=== PATIENT | male | born 1995 | race Caucasian/White ===

== ENCOUNTER 2016-10-26 08:43 | Emergency (ER) | payer OTHER ==
[~2016-10-26 08:43] MED LIST: LANTUS100 UNITS/ SC; NOVOLOG100 UNITS/ SC
[2016-10-26 09:26] LABS: BASO % 0.4 % (0-2); EOSINOPHIL ABSOLUTE COUNT 0.2 tho/cmm (0.0-0.7); HCT-HEMATOCRIT 40.2 % (36.0-53.5); HGB-HEMOGLOBIN 14.1 gm/dl (13.5-17.0); IMMATURE GRANULOCYTES ABSOLUTE 0.05 tho/cmm (0-0.03); IMMATURE GRANULOCYTES PERCENT 0.5 % (0-0.3); KETONE-BETA (WHOLE BLOOD) 0.4 mmol/L (0.0-0.6); LYMPH % 25.9 % (20-45); LYMPH ABSOLUTE COUNT 2.6 tho/cmm (0.8-4.5); MCH (MEAN CORPUSCULAR HGB) 30.7 pg (28.0-32.0); MCHC MEAN CORPUSCULAR HGB CONC 35.1 % (32.0-36.0); MCV (MEAN CELL VOLUME) 87.6 fl (82.0-96.0); MEAN PLATELET VOLUME 8.5 cmc (9.4-12.4); MONOCYTE ABSOLUTE COUNT 0.9 tho/cmm (0.0-1.2); NEUTROPHIL ABSOLUTE COUNT 6.2 tho/cmm (1.6-8.0); NEUTROPHIL-AUTOMATED 6.2 tho/cmm (1.6-8.0); NEUTROPHILS % 62.2 % (40-80); PLATELET COUNT 398 tho/cmm (150-450); RED BLOOD COUNT 4.59 mil/cmm (4.40-5.70)
[2016-10-26 09:54] LABS: ALB/GLOB RATIO 0.8 (0.8-2.0); ALBUMIN 3.4 g/dl (3.5-5.0); ALKALINE PHOSPHATASE 237 U/L (33-138); ALT/SGPT 215 U/L (12-78); BILIRUBIN,TOTAL 0.4 mg/dl (0.0-1.5); BLOOD UREA NITROGEN 15 mg/dl (6-24); CALCIUM 9.1 mg/dl (8.5-10.5); CARBON DIOXIDE-VENOUS 22 mmol/L (22-32); CHLORIDE 99 mmol/l (96-110); GLUCOSE 214 mg/dL (70-110); LIPASE 222 U/L (73-393); PHOSPHOROUS 1.9 mg/dl (2.5-4.9); SODIUM 136 mmol/L (135-145); eGFR VALUE FOR BLACK >90 mL/Min
[2016-10-26 09:59] LABS: ANION GAP 19 mmol/L (0-20); AST/SGOT 232 U/L (10-40); MAGNESIUM 2.1 mg/dl (1.8-2.6); POTASSIUM 4.4 mmol/L (3.7-5.1)
== END 2016-10-26 10:35 ==
LOC: EDMED 08:43
PROVIDERS: Emergency Medicine
DX: E11.65 Type 2 diabetes mellitus with hyperglycemia (principal); R94.5 Abnormal results of liver function studies; Z79.4 Long term (current) use of insulin
CPT/HCPCS: J7030